=== PATIENT | male | born 1965 | race Asian ===

== ENCOUNTER 2016-08-16 15:30 | Emergency (ER) | payer OTHER ==
[~2016-08-16] VITALS: Ht 180.3 cm; Wt 98.2 kg
[~2016-08-16 15:30] MED LIST: ANTIVERT25 MG PO; BENAZEPRIL-HCT1 EAC2 PO; INDOCIN25 MG PO; NAPROSYN500 MG PO; NORCO 7.5/321 TABLET PO; ULTRAM50 MG PO
[2016-08-16 15:54] LABS: HEMATOCRIT 40.5 % (38.0-50.0); MCH 29.7 PG (29.0-34.0); MCHC 36.5 G/DL (30.0-36.0); MCV 81.3 FL (86-99); MEAN PLAT.VOLUME 9.3 uM^3 (9.0-12.4); PLATELET COUNT 233 K/uL (156-360); RBC DIS.WIDTH-CV 13.2 % (11.8-14.6); RBC DIS.WIDTH-SD 38.2 % (39-53); RED BLOOD COUNT 4.98 M/uL (4.00-5.50); WHITE BLOOD COUNT 11.2 K/uL (4.1-10.2)
[2016-08-16 16:06] LABS: CHLORIDE 103 mEq/L (99-109); POTASSIUM 3.9 mEq/L (3.7-5.4); SODIUM 139 mEq/L (136-147)
[2016-08-16 16:08] LABS: GLUCOSE 244 mg/dL (70-99)
[2016-08-16 16:09] LABS: ANION GAP 12 MEQ/L (2-14)
[2016-08-16 16:10] LABS: TOTAL BILIRUBIN 1.6 mg/dL (0.0-1.0)
[2016-08-16 16:12] LABS: ALKALINE PHOSPHATASE 63 IU/L (3-129); GFR ESTIMATE (CALCULATED) > 59 mL/min/
[2016-08-16 16:13] LABS: UREA NITROGEN (BUN) 12 mg/dL (9-23)
[2016-08-16] MEDS ORDERED: METFORMIN HCL500 MG PO (16:22)
[2016-08-16] MEDS ORDERED: ALLOPURINOL100 MG PO (16:22)
[2016-08-16] MEDS ORDERED: AMLODIPINE-BEN1 EAC3 PO (16:23)
[2016-08-16 16:24] LABS: ADD MIUA? YES; BILIRUBIN NEGATIVE; BLOOD SMALL; COLOR YELLOW ((YELLOW)); GLUCOSE (STRIP) >=500; KETONES 20; LEUKOCYTES NEGATIVE; NITRITE NEGATIVE; PROTEIN (STRIP) NEGATIVE; SPECIFIC GRAVITY 1.015 (1.000-1.030); UROBILINOGEN 0.2 MG/DL (0.2-1.0)
[2016-08-16 16:44] LABS: BACTERIA NONE SEEN /HPF; EPITHELIAL CELLS RARE /HPF; MUCUS 2+ /LPF; UCUL ADDED? NO; WHITE BLOOD CELLS 0-5 /HPF (0-5)
[2016-08-16] MEDS ORDERED: ZOFRAN ODT4 MG PO (19:24)
[2016-08-16] MEDS ORDERED: PERCOCET 5/31 TABLET PO (19:24)
[2016-08-16] MEDS ORDERED: FLOMAX0.4 MG PO (19:24)
[2016-08-16 19:43] VITALS: BP 118/62
== END 2016-08-16 19:44 | disposition home or self-care (01) ==
LOC: EME 15:30
DX: N20.0 Calculus of kidney (principal)
CPT/HCPCS: 74176; 80053; 81003; 85027; 99281; 99284